=== PATIENT | female | born 1990 | race Caucasian/White ===

== ENCOUNTER 2021-08-14 07:57 | Emergency (ER) | payer OTHER ==
[~2021-08-14] VITALS: Ht 162.6 cm; Wt 91.0 kg
[2021-08-14 08:11] VITALS: BP 105/63
[2021-08-14] MEDS ORDERED: ACETAMINOPHEN 325MG TABLET PO ONE (10:00)
[2021-08-14 11:27] LABS: CLARITY URINE CLOUDY (CLEAR); COLOR URINE DARK YELLOW (YELLOW); KETONES URINE TRACE (NEGATIVE); LEUKOCYTE ESTERASE URINE TRACE (NEGATIVE); NITRITE URINE NEGATIVE (NEGATIVE); OCCULT BLOOD URINE NEGATIVE (NEGATIVE); PH URINE 7.5 (4.5-8.0); PROTEIN URINE TRACE (NEGATIVE); SPECIFIC GRAVITY URINE 1.027 (1.005-1.030)
== END 2021-08-14 11:38 | disposition left against medical advice (07) ==
LOC: ER 09:05
DX: R53.81 Other malaise (principal); Z91.19 Patient's noncompliance with other medical treatment and regimen
CPT/HCPCS: 81003; 81025; 87426; 99283; C9803

== ENCOUNTER 2021-12-22 21:29 | Emergency (ER) | payer OTHER ==
[~2021-12-22] VITALS: Ht 162.6 cm; Wt 96.4 kg
[2021-12-22 22:18] VITALS: BP 107/71
[2021-12-23] MEDS ORDERED: IBUPROFEN 600MG TABLET PO STA (02:51)
[2021-12-23] MEDS ORDERED: ACETAMINOPHEN 325MG TABLET PO NR (03:12)
[2021-12-23 04:01] LABS: BASOPHILS % 0.3 % (0.0-2.0); CLARITY URINE CLOUDY (CLEAR); COLOR URINE YELLOW (YELLOW); EOSINOPHILS % 2.9 % (0.0-5.0); HEMATOCRIT. 45.2 % (36.0-48.0); HEMOGLOBIN. 15.2 g/dL (12.0-16.0); KETONES URINE NEGATIVE (NEGATIVE); LEUKOCYTE ESTERASE URINE NEGATIVE (NEGATIVE); LYMPHOCYTES % 29.5 % (20.0-50.0); MEAN CORPUSCULAR HEMOGLOBIN 30.5 pg (28.0-32.0); MEAN CORPUSCULAR VOLUME 90.5 fL (81.0-99.0); MEAN PLATELET VOLUME 8.4 fl (7.4-10.4); MONOCYTES % 6.7 % (2.0-8.0); NEUTROPHILS % 60.6 % (40.0-76.0); NITRITE URINE NEGATIVE (NEGATIVE); OCCULT BLOOD URINE NEGATIVE (NEGATIVE); PLATELET 328 x1000/uL (130-400); PROTEIN URINE NEGATIVE (NEGATIVE); RED BLOOD CELL COUNT 4.99 mill/uL (4.2-5.4); RED CELL DISTRIBUTION WIDTH 13.2 % (11.6-14.6); SPECIFIC GRAVITY URINE 1.012 (1.005-1.030); UROBILINOGEN URINE 0.2 E.U./dL (0.2-1.0)
[2021-12-23 04:12] LABS: CHLORIDE 108 mEq/L (98-107)
[2021-12-23] MEDS ORDERED: NAPR-681 PO (05:37)
== END 2021-12-23 06:12 | disposition home or self-care (01) ==
LOC: ER 21:29
DX: R20.2 Paresthesia of skin (principal); M79.10 Myalgia, unspecified site; R53.81 Other malaise; R53.83 Other fatigue; Z88.6 Allergy status to analgesic agent
CPT/HCPCS: 36415; 80053; 81003; 81025; 85025; 99283

== ENCOUNTER 2022-04-27 01:08 | Emergency (ER) | payer MEDICAID, OTHER ==
[~2022-04-27] VITALS: Ht 162.6 cm; Wt 102.0 kg
[~2022-04-27 01:08] MED LIST: NAPR-681 PO
[2022-04-27 01:15] VITALS: BP 129/66
[2022-04-27] MEDS ORDERED: ALBUTEROL (0.083%) 2.5MG/3ML NEB HHN ONE (02:30)
[2022-04-27] MEDS ORDERED: ACETAMINOPHEN 500MG TABLET PO ONE (02:30)
[2022-04-27] MEDS ORDERED: GUAI600T26 MT (02:45)
[2022-04-27] MEDS ORDERED: ALBU18HF2 IH (02:45)
[2022-04-27] MEDS ORDERED: ACET-2708 MT (02:45)
== END 2022-04-27 03:23 | disposition home or self-care (01) ==
LOC: ER 01:08
DX: B34.9 Viral infection, unspecified (principal); R06.02 Shortness of breath
CPT/HCPCS: 71045; 94640; 99283; Z7610

== ENCOUNTER 2023-03-02 16:12 | Emergency (ER) | payer OTHER ==
[~2023-03-02 16:12] MED LIST changes: +ACET-2708 MT; +ALBU18HF2 IH; +GUAI600T26 MT
== END 2023-03-02 18:18 | disposition left against medical advice (07) ==
LOC: ER 17:07
DX: Z48.00 Encounter for change or removal of nonsurgical wound dressing (principal); Z53.21 Procedure and treatment not carried out due to patient leaving prior to being seen by health care provider
CPT/HCPCS: C1893

== ENCOUNTER 2023-03-08 18:09 | Emergency (ER) | payer SELFPAY ==
[~2023-03-08] VITALS: Ht 162.6 cm; Wt 73.0 kg
[2023-03-08 18:46] VITALS: BP 111/69; PULSE 83; RESP 16; TEMP 98.8; O2SAT 100
== END 2023-03-08 23:44 | disposition left against medical advice (07) ==
LOC: ER 18:09
DX: T14.8XXA Other injury of unspecified body region, initial encounter (principal); Z53.21 Procedure and treatment not carried out due to patient leaving prior to being seen by health care provider; X58.XXXA Exposure to other specified factors, initial encounter; Y93.89 Activity, other specified; Y92.89 Other specified places as the place of occurrence of the external cause; Y99.8 Other external cause status
CPT/HCPCS: 99281

== ENCOUNTER 2023-03-10 09:02 | Emergency (ER) | payer SELFPAY ==
[~2023-03-10] VITALS: Ht 167.6 cm; Wt 91.0 kg
[2023-03-10 09:10] VITALS: BP 110/64; RESP 18; TEMP 98.5; O2SAT 96
[2023-03-10 09:12] VITALS: PULSE 118
== END 2023-03-10 14:03 | disposition home or self-care (01) ==
LOC: ER 09:02
DX: S81.011D Laceration without foreign body, right knee, subsequent encounter (principal); F31.9 Bipolar disorder, unspecified; F20.9 Schizophrenia, unspecified; X58.XXXD Exposure to other specified factors, subsequent encounter
CPT/HCPCS: 99281

== ENCOUNTER 2023-05-22 20:25 | Emergency (ER) | payer MEDICAID ==
[~2023-05-22] VITALS: Ht 162.6 cm; Wt 80.0 kg
[2023-05-22 20:40] VITALS: BP 99/45; O2SAT 99
[2023-05-22 20:51] VITALS: PULSE 85; RESP 16
[2023-05-22] MEDS ORDERED: KETOROLAC 15MG/ML VIAL IM ONE (22:45)
[2023-05-22] MEDS ORDERED: ACET-2708 MT (22:48)
[2023-05-22] MEDS ORDERED: LIDO700A15 TP (22:51)
[2023-05-22 22:53] VITALS: TEMP 98
[2023-05-22] MEDS: ACETAMINOPHEN 500MG TABLET PO ONE (22:53)
== END 2023-05-22 23:08 | disposition home or self-care (01) ==
LOC: ER 20:25
DX: M70.21 Olecranon bursitis, right elbow (principal); F31.9 Bipolar disorder, unspecified; F20.9 Schizophrenia, unspecified; Z79.899 Other long term (current) drug therapy
CPT/HCPCS: 73080; 81025; 99283

== ENCOUNTER 2023-07-14 07:53 | Emergency (ER) | payer OTHER ==
[~2023-07-14] VITALS: Ht 162.6 cm; Wt 82.0 kg
[~2023-07-14 07:53] MED LIST changes: +LIDO700A15 TP
[2023-07-14 08:02] VITALS: TEMP 98.1; O2SAT 95
[2023-07-14] MEDS: IPRATROPIUM/ALBUTEROL 0.5-3(2.5)MG/3ML NEB HHN ONE (08:30)
[2023-07-14] MEDS ORDERED: KETOROLAC 60MG/2ML VIAL IM ONE (08:30)
[2023-07-14] MEDS ORDERED: DEXAMETHASONE 10 MG/ML VIAL IM ONE (08:30)
[2023-07-14] MEDS: ALBUTEROL (0.083%) 2.5MG/3ML NEB HHN ONE (08:30)
[2023-07-14 08:32] LABS: BASOPHILS % 0.5 % (0.0-2.0); EOSINOPHILS % 0.5 % (0.0-5.0); HEMATOCRIT. 42.6 % (36.0-48.0); HEMOGLOBIN. 14.8 g/dL (12.0-16.0); LYMPHOCYTES % 20.4 % (20.0-50.0); MEAN CORPUSCULAR HEMOGLOBIN 31.7 pg (28.0-32.0); MEAN CORPUSCULAR HGB CONC 34.7 g/dL (31.0-37.0); MEAN CORPUSCULAR VOLUME 91.3 fL (81.0-99.0); MEAN PLATELET VOLUME 7.4 fl (7.4-10.4); MONOCYTES % 7.2 % (2.0-8.0); NEUTROPHILS % 71.4 % (40.0-76.0); PLATELET 351 x1000/uL (130-400); RED BLOOD CELL COUNT 4.67 mill/uL (4.2-5.4); WHITE BLOOD COUNT 7.7 x1000/uL (4.5-11.0)
[2023-07-14 08:41] LABS: CHLORIDE 105 mEq/L (98-107); POTASSIUM 3.3 mEq/L (3.5-5.1); SODIUM 137 mEq/L (136-145)
[2023-07-14 08:42] LABS: CARBON DIOXIDE 27 mEq/L (21-32)
[2023-07-14 08:43] LABS: CALCIUM 9.7 mg/dL (8.7-10.4)
[2023-07-14] MEDS: KETOROLAC 15MG/ML VIAL IV ONE (08:45)
[2023-07-14] MEDS: DEXAMETHASONE 4MG/ML 1ML VIAL IV ONE (08:45)
[2023-07-14 08:46] LABS: D-DIMER 0.19 mg/L FEU (<0.50); PROTHROMBIN TIME 11.1 sec (9.6-11.0)
[2023-07-14 08:47] LABS: CREATININE 0.8 mg/dL (0.6-1.0); GLUCOSE 98 mg/dL (70-105)
[2023-07-14 08:48] LABS: UREA NITROGEN BLOOD 16 mg/dL (9-23)
[2023-07-14 08:49] LABS: ALANINE AMINOTRANSFERASE 12 IU/L (10-49); ALBUMIN 4.8 g/dL (3.2-4.8); ASPARTATE AMINOTRANSFERASE 19 IU/L (<34)
[2023-07-14 08:50] LABS: BILIRUBIN TOTAL 0.6 mg/dL (0.1-1.0); PROTEIN TOTAL 7.2 g/dL (6.0-8.3)
[2023-07-14] MEDS ORDERED: T3 PO (10:18)
[2023-07-14] MEDS: MORPHINE SULFATE 4 MG/ML INJ (FOR IV/IM USE) IV ONE (10:22)
[2023-07-14 10:42] VITALS: BP 103/65; PULSE 74; RESP 24
== END 2023-07-14 10:35 | disposition home or self-care (01) ==
LOC: ER 07:53 → CANBEDREQ 10:16 → ER 10:35
DX: M70.21 Olecranon bursitis, right elbow (principal); F17.200 Nicotine dependence, unspecified, uncomplicated; F20.9 Schizophrenia, unspecified; F31.9 Bipolar disorder, unspecified
CPT/HCPCS: 80053; 83605; 85025; 85379; 85610; 87040; 36415; 84145; 71045; 93005; 96374; 99285; J1100; J2270; Z7610; J1885

== ENCOUNTER 2024-03-22 17:00 | Emergency (ER) | payer OTHER ==
[~2024-03-22] VITALS: Ht 165.1 cm; Wt 80.0 kg
[~2024-03-22 17:00] MED LIST changes: +T3 PO
[2024-03-22 17:15] VITALS: BP 130/63; PULSE 84; RESP 18; TEMP 97.8; O2SAT 100
== END 2024-03-22 19:58 | disposition home or self-care (01) ==
LOC: ER 17:00
DX: S02.2XXA Fracture of nasal bones, initial encounter for closed fracture (principal); R51.9 Headache, unspecified; F31.9 Bipolar disorder, unspecified; F20.9 Schizophrenia, unspecified; Z79.899 Other long term (current) drug therapy; Y08.89XA Assault by other specified means, initial encounter; Y93.89 Activity, other specified; Y92.89 Other specified places as the place of occurrence of the external cause; Y99.8 Other external cause status
CPT/HCPCS: 70486; 99284